=== PATIENT | male | born 1945 | race Caucasian/White ===

== ENCOUNTER 2019-09-26 10:33 | Observation (INO) ==
[2019-09-26] MEDS ORDERED: Pantoprazole 80 MG in 0.9 % Sodium Chloride 50 ML IVPB ONE (10:51)
[2019-09-26] MEDS ORDERED: 0.9 % Sodium Chloride 1,000 ML IVC ONE ×2 (10:51→12:14)
[2019-09-26] MEDS ORDERED: 0.9 % Sodium Chloride 1,000 ML ONE (10:53)
[2019-09-26] MEDS ORDERED: *HR* FentaNYL (PF) 100 MCG/2 ML VIAL IVP ONE (10:58)
[2019-09-26 11:21] LABS: Basophils % 0.3 %; Eosinophils # 0.1 K/mcL (0.0-0.6); Hematocrit 44.6 % (37.5-50.1); Hemoglobin 14.1 g/dL (12.9-16.9); Immature Granulocytes % 0.5 % (0-4); Lymphocytes % 15.9 %; Mean Corpuscular HGB Conc 31.6 g/dL (31.6-35.5); Mean Corpuscular Hemoglobin 29.6 pg (28.0-33.3); Mean Corpuscular Volume 93.7 fL (83.0-100.0); Mean Platelet Volume 10.9 fL (9.4-12.4); Monocytes # 0.7 K/mcL (0.0-1.3); Neutrophils # 9.4 K/mcL (1.6-8.9); Platelet Count 248 K/mcL (140-400); Red Blood Count 4.76 M/mcL (4.19-5.50); Red Cell Distribution Width 15.3 % (11.5-14.5); Segmented Neutrophils % 76.3 %; White Blood Count 12.4 K/mcL (4.3-11.1)
[2019-09-26 11:27] LABS: INR 1.2; Prothrombin Time 13.5 Seconds (9.4-12.1)
[2019-09-26 11:40] LABS: Bilirubin,Urine Small (Negative); Blood,Urine Negative (Negative); Clarity,Urine Clear (Clear); Color,Urine Dark Yellow (Yellow); Glucose,Urine (UA) Normal (Normal); Ketones,Urine 40 mg/dL (Negative); Leukocyte Esterase,Urine Small (Negative); Nitrite,Urine Negative (Negative); Protein,Urine 30 mg/dL (Neg-Trace); Specific Gravity,Urine 1.026 (1.010-1.025); Urobilinogen,Urine Normal (Normal)
[2019-09-26 11:43] LABS: Bacteria,Urine None Seen per hpf (None-Few); Hyaline Casts,Urine None Seen per lpf (None-Few); RBC,Urine 0-3 per hpf (0-3); Squamous Epithelial Cell,Urine Moderate per lpf (None-Few); WBC,Urine 0-3 per hpf (0-3)
[2019-09-26 11:43] LABS: BUN/Creatinine Ratio 20 (6-26); Blood Urea Nitrogen 18 mg/dL (8-23); C-Reactive Protein 180 mg/L (Less than 10); Calcium 9.3 mg/dL (8.6-10.3); Carbon Dioxide 25 mEq/L (23-29); Chloride 98 mEq/L (98-107); Glucose 99 mg/dL (70-105); Lipase 15 Units/L (11-82); Magnesium 2.1 mg/dL (1.6-2.6); Osmolality,Calculated 278 (280-300); Potassium 3.6 mEq/L (3.5-5.1); Sodium 133 mEq/L (136-145); Troponin I 0.03 ng/mL (< 0.04); eGFR For African Americans > 60 (> 60); eGFR For Non-African Americans > 60 (> 60)
[2019-09-26] MEDS ORDERED: Isovue-370 500 ML BOTTLE IVP ONE (12:08)
[2019-09-26] MEDS ORDERED: Azithromycin 500 MG in 0.9 % Sodium Chloride 250 ML IVPB ONE (12:15)
[2019-09-26] MEDS ORDERED: cefTRIAXone 2,000 MG in Water for inj. (sterile) 20 ML IVP ONE (12:15)
[2019-09-26 12:22] LABS: Alanine Aminotransferase 241 Units/L (7-52); Albumin 3.8 g/dL (3.5-5.7); Albumin/Globulin Ratio 0.8 (1.1-2.2); Alkaline Phosphatase 394 Units/L (34-104); Aspartate Amino Transferase 193 Units/L (13-39); Bilirubin,Direct 1.4 mg/dL (0.0-0.2); Bilirubin,Total 2.4 mg/dL (0.3-1.0); Globulin 4.7 g/dL (2.4-3.5); Total Protein 8.5 g/dL (6.4-8.9)
[2019-09-26] MEDS ORDERED: Piperacillin/Tazobactam 3.375 GM in 0.9 % Sodium Chloride Mini Bag 100 ML IVPB ONE (12:39)
[2019-09-26] MEDS ORDERED: *HR* FentaNYL (PF) 100 MCG/2 ML VIAL ONE (15:50)
[2019-09-26] MEDS ORDERED: Bupivacaine/EPI 1:200k 0.5%PF 30 ML VIAL ONE (15:57)
[2019-09-26] MEDS ORDERED: *HR* Propofol 200 MG/20 ML VIAL IVP ONE (15:59)
[2019-09-26] MEDS ORDERED: *HR* OxyCODONE Immed Rel 5 MG TABLET PO PRN ×2 (16:09→18:11)
[2019-09-26] MEDS ORDERED: Ondansetron 4 MG/2 ML VIAL IVP ONE (16:09)
[2019-09-26] MEDS ORDERED: *HR* HYDROmorphone PF 0.5 MG/0.5 ML SYRINGE IVP PRN (16:09)
[2019-09-26] MEDS ORDERED: CefOXitin 2,000 MG VIAL ONE (16:32)
[2019-09-26] MEDS ORDERED: CeFAZolin Syr 2,000MG/20 ML 2,000 MG/20 ML SYRINGE IVPB ONE (16:46)
[2019-09-26] MEDS ORDERED: *HR* PHENYLEPHRINE 1,000 MCG/10 ML SYRINGE IVP ONE (17:11)
[2019-09-26] MEDS ORDERED: cefOXitin 2,000 MG in Water for inj. (sterile) 20 ML IVP ONE (17:13)
[2019-09-26] MEDS ORDERED: Dexamethasone 4 MG/ML VIAL ONE (17:38)
[2019-09-26] MEDS ORDERED: Ondansetron 4 MG/2 ML VIAL ONE (17:38)
[2019-09-26] MEDS ORDERED: Ringers Solution, Lactated 1,000 ML ONE (17:39)
[2019-09-26] MEDS ORDERED: Morphine Sulfate Oral CONC 10 MG/0.5 ML ORAL.SYG SL PRN (18:11)
[2019-09-26] MEDS ORDERED: Ondansetron 4 MG/2 ML VIAL IVP PRN (18:11)
[2019-09-26] MEDS: 0.9 % Sodium Chloride 1,000 ML IVC SCH (18:45)
[2019-09-26] MEDS: *HR* Heparin 5,000 UNIT/ML VIAL SQ SCH (18:46)
[2019-09-26] MEDS: Acetaminophen IV 1,000 MG/100 ML INFUS..BTL IVPB SCH ×2 (22:56→22:58)
[2019-09-26] MEDS: cefOXitin 1,000 MG in Water for inj. (sterile) 10 ML IVP SCH (22:57)
[2019-09-27 05:53] LABS: Hematocrit 39.2 % (37.5-50.1); Mean Corpuscular HGB Conc 31.6 g/dL (31.6-35.5); Mean Corpuscular Hemoglobin 29.9 pg (28.0-33.3); Mean Corpuscular Volume 94.5 fL (83.0-100.0); Mean Platelet Volume 10.9 fL (9.4-12.4); Platelet Count 242 K/mcL (140-400); Red Blood Count 4.15 M/mcL (4.19-5.50); Red Cell Distribution Width 15.4 % (11.5-14.5)
[2019-09-27 05:54] LABS: Hemoglobin 12.4 g/dL (12.9-16.9)
[2019-09-27] MEDS: *HR* Heparin 5,000 UNIT/ML VIAL SQ SCH ×2 (06:21→17:17)
[2019-09-27 06:22] LABS: Alanine Aminotransferase 154 Units/L (7-52); Albumin 3.1 g/dL (3.5-5.7); Albumin/Globulin Ratio 0.8 (1.1-2.2); Alkaline Phosphatase 295 Units/L (34-104); Aspartate Amino Transferase 108 Units/L (13-39); BUN/Creatinine Ratio 17 (6-26); Bilirubin,Direct 0.6 mg/dL (0.0-0.2); Bilirubin,Indirect 0.6 mg/dL (0.0-1.0); Bilirubin,Total 1.2 mg/dL (0.3-1.0); Blood Urea Nitrogen 15 mg/dL (8-23); Calcium 8.3 mg/dL (8.6-10.3); Carbon Dioxide 22 mEq/L (23-29); Chloride 104 mEq/L (98-107); Globulin 3.9 g/dL (2.4-3.5); Glucose 84 mg/dL (70-105); Osmolality,Calculated 282 (280-300); Potassium 4.2 mEq/L (3.5-5.1); Sodium 136 mEq/L (136-145); eGFR For African Americans > 60 (> 60); eGFR For Non-African Americans > 60 (> 60)
[2019-09-27] MEDS: Acetaminophen IV 1,000 MG/100 ML INFUS..BTL IVPB SCH ×3 (06:24→17:17)
[2019-09-27] MEDS: cefOXitin 1,000 MG in Water for inj. (sterile) 10 ML IVP SCH (07:40)
[2019-09-27] MEDS ORDERED: Lidocaine -MPF 4% 5 ML AMPUL ONE (10:05)
[2019-09-27] MEDS ORDERED: Ringers Solution, Lactated 1,000 ML IVC SCH (10:15)
[2019-09-27] MEDS ORDERED: Dexamethasone 4 MG/ML VIAL ONE (10:28)
[2019-09-27] MEDS ORDERED: Ondansetron 4 MG/2 ML VIAL ONE ×2 (10:47→12:05)
[2019-09-27] MEDS ORDERED: *HR* FentaNYL (PF) 100 MCG/2 ML VIAL ONE (10:47)
[2019-09-27] MEDS ORDERED: *HR* Succinylcholine 200 MG/10 ML VIAL IVP ONE (10:47)
[2019-09-27] MEDS ORDERED: Lidocaine -MPF 2% 2 ML VIAL ONE (10:47)
[2019-09-27] MEDS ORDERED: Indomethacin 50 MG SUPP.RECT RC ONE (11:42)
[2019-09-27] MEDS ORDERED: Ondansetron 4 MG/2 ML VIAL IVP PRN (12:02)
[2019-09-27] MEDS: 0.9 % Sodium Chloride 1,000 ML IVC SCH (13:57)
[2019-09-28] MEDS: Acetaminophen IV 1,000 MG/100 ML INFUS..BTL IVPB SCH ×3 (01:01→11:11)
[2019-09-28] MEDS: *HR* Heparin 5,000 UNIT/ML VIAL SQ SCH (06:01)
[2019-09-28] MEDS: 0.9 % Sodium Chloride 1,000 ML IVC SCH (06:01)
[2019-09-28 08:03] LABS: Basophils % 0.1 %; Hematocrit 36.6 % (37.5-50.1); Hemoglobin 11.6 g/dL (12.9-16.9); Immature Granulocytes % 0.4 % (0-4); Lymphocytes % 9.8 %; Mean Corpuscular HGB Conc 31.7 g/dL (31.6-35.5); Mean Corpuscular Hemoglobin 29.9 pg (28.0-33.3); Mean Corpuscular Volume 94.3 fL (83.0-100.0); Mean Platelet Volume 10.8 fL (9.4-12.4); Monocytes # 0.5 K/mcL (0.0-1.3); Monocytes % 5.2 %; Neutrophils # 8.5 K/mcL (1.6-8.9); Platelet Count 188 K/mcL (140-400); Red Blood Count 3.88 M/mcL (4.19-5.50); Red Cell Distribution Width 15.5 % (11.5-14.5); Segmented Neutrophils % 84.5 %; White Blood Count 10.1 K/mcL (4.3-11.1)
[2019-09-28 08:06] LABS: Alanine Aminotransferase 99 Units/L (7-52); Albumin 2.9 g/dL (3.5-5.7); Albumin/Globulin Ratio 0.7 (1.1-2.2); Alkaline Phosphatase 228 Units/L (34-104); Aspartate Amino Transferase 45 Units/L (13-39); BUN/Creatinine Ratio 26 (6-26); Bilirubin,Direct 0.4 mg/dL (0.0-0.2); Bilirubin,Indirect 0.4 mg/dL (0.0-1.0); Bilirubin,Total 0.8 mg/dL (0.3-1.0); Blood Urea Nitrogen 22 mg/dL (8-23); Calcium 8.4 mg/dL (8.6-10.3); Carbon Dioxide 25 mEq/L (23-29); Chloride 104 mEq/L (98-107); Globulin 3.9 g/dL (2.4-3.5); Glucose 133 mg/dL (70-105); Lipase < 3 Units/L (11-82); Osmolality,Calculated 285 (280-300); Potassium 4.3 mEq/L (3.5-5.1); Sodium 135 mEq/L (136-145); Total Protein 6.8 g/dL (6.4-8.9); eGFR For African Americans > 60 (> 60); eGFR For Non-African Americans > 60 (> 60)
[2019-09-28 11:04] VITALS: BP 136/78
== END 2019-09-28 12:12 | disposition home or self-care (01) ==
LOC: 3ANU 10:33 → EMEROOARM 10:33 → 3ANU 15:12
PROVIDERS: ADMIT Surgery; ATTEND Surgery